=== PATIENT | female | born 1965 | race Caucasian/White ===

== ENCOUNTER 2023-05-30 15:16 | Outpatient (CLI) | payer OTHER, SELFPAY | END 2023-05-30 15:17 | disposition home or self-care (01) | PROVIDERS: PCP Family Medicine; Visit Provider Nurse Practitioner Family | DX: I25.10 Atherosclerotic heart disease of native coronary artery without angina pectoris (principal) | CPT/HCPCS: 36415; 85025 ==

== ENCOUNTER 2023-06-30 08:14 | Outpatient (CLI) | payer OTHER, SELFPAY ==
[2023-06-30 08:28] VITALS: BMI 25.0
--- NOTE | 2023-06-30 08:28 | NMCV_ITS ---
NM elaine perf SPECT r/s* [id number] Nicolette Payne Age: 58 Gender: F : 1965 Exam Date: 06/30/2023 08:28 Ordering Phys: Gabbi Neves Technologist: FLORENCIO Worrell Exam Location: [facility] Indications: ATHEROSCLEROTIC HEART DISEASE STRESS TEST Please see separate stress test report in [facility] for full findings IMAGE PROTOCOL Rest/Stress 1 Lexiscan Day Radiopharmaceutical Dose (mCi) Administration Site Administered by Rest: Tc-99m 10.8 IV FLORENCIO Worrell Sestamibi Stress:Tc-99m 32.7 IV FLORENCIO Laguna Sestamibi Rest: 30-Jun-2023 60 Discovery 630 Stress: 30-Jun-2023 30 Discovery 630 0.4mg Lexiscan. Images obtained in supine and prone position. SPECT RESULTS Technical Quality: Excellent Raw Data Analysis: Normal Image Corrections: No attenuation or motion correction applied Summed Stress Score: 7 Summed Rest Score: 11 Summed Difference Score: 0 PERFUSION FINDINGS There is a large sized fixed perfusion defect noted in apical, apical septal hope. This is consistent with large sized prior infarct noted in the LAD territory. Small sized area of fixed perfusion defect noted in the inferolateral wall. This is consistent with small sized prior infarct in the left circumflex artery territory FUNCTIONAL RESULTS (calculated via Gated SPECT) Stress Image LV EF (%): 77 Stress EDV (mL):78 TID: 0.98 Stress ESV (mL):18 FUNCTIONAL FINDINGS: There is normal left ventricular systolic function. IMPRESSIONS 1. Abnormal myocardial perfusion imaging with large sized area of prior infarct noted in the LAD territory. 2. Small sized prior infarct in the circumflex artery territory. 3. LV systolic function is normal. Leonel Styles MD (Electronically Signed) Final Date: 04 July 2023 10:43 S
--- NOTE | 2023-06-30 08:28 | ECG_ITS ---
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 Interpretive Statements NAME OF STUDY: LEXISCAN SESTAMIBI STRESS TEST INDICATION: [WORSENING ANGINA, ] Procedure: At the baseline, the blood pressure was 133/66 mmHg with a heart rate of 60 bpm. The electrocardiogram showed normal sinus rhythm, normal axis with normal ST and T's. The Lexiscan was infused over a period of 20 seconds. A total of 0.4 mg of Lexiscan was infused. The stress phase was continued for a total of 5 minutes. Heart rate was at the end of stress phase was 84 bpm and a blood pressure of 152/77 mmHg. The EKG at the peak infusion revealed normal sinus rhythm with no significant ST-T wave changes. Sestamibi was injected 20 seconds after the Lexiscan infusion. Blood pressure at the end of recovery phase was 148/75 mmHg with a heart rate of 86 bpm. Conclusion: 1. Normal EKG response to Lexiscan infusion 2. No Lexiscan induced chest pain or cardiac arrhythmia. 3. Normal blood pressure and heart rate response. 4. Sestamibi/sestamibi perfusion scan pending; see separate report. Electronically Signed On 07-12-2023 11:37:58 CDT by Leonel Styles M.D. [email or web address]
[2023-06-30 09:32] LABS: Anion Gap 15.4 (5-19); Blood Urea Nitrogen 16 mg/dL (8-23); Calcium 9.4 mg/dL (8.5-10.5); Carbon Dioxide 23 mmol/L (22-29); Chloride 108 mmol/L (98-107); Glucose 89 mg/dL (65-115); Osmolality Calculated 295 mOsm/kg (285-295); Potassium 4.4 mmol/L (3.5-5.1); Sodium 142 mmol/L (136-145)
[2023-06-30 10:14] LABS: Thyroid Stimulating Hormone 1.76 uIU/mL (0.27-4.20)
[2023-06-30] MEDS: regadenoson 0.4 Mg/5 ml Syringe IVP (11:04)
[2023-06-30 12:09] VITALS: BP 138/82; PULSE 87
== END 2023-06-30 08:15 | disposition home or self-care (01) ==
PROVIDERS: PCP Family Medicine; Visit Provider Nurse Practitioner Family
DX: I25.10 Atherosclerotic heart disease of native coronary artery without angina pectoris (principal)
CPT/HCPCS: 36415; 78452; 80048; 84443; 93017; 96374; A9500; J2785

== ENCOUNTER 2025-03-23 07:41 | Emergency (ER) | payer OTHER, SELFPAY ==
--- NOTE | 2025-03-23 07:44 | XRR_ITS ---
PROCEDURE INFORMATION: Exam: XR Chest Exam date and time: 03/23/2025 8:08 AM Age: 59 years old Clinical indication: Pain; Chest pressure; Prior surgery; Surgery date: 6+ months; Surgery type: Cardiac stent x 5; Additional info: Chest pain; Weakness; Fever; HX mi TECHNIQUE: Imaging protocol: Radiologic exam of the chest. Views: 1 view. COMPARISON: No relevant prior studies available. FINDINGS: Lungs: The lungs are clear. Pleural spaces: Unremarkable. No pleural effusion. No pneumothorax. Heart/Mediastinum: The heart is normal in size. There is a coronary artery stent present. Bones/joints: Unremarkable. XR/XR chest 1V portable [id number] IMPRESSION: No acute findings.
--- NOTE | 2025-03-23 07:46 | ECG_ITS ---
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 Measurements Intervals [place] Rate: 69 P: 54 GA: 171 QRS: 0 QRSD: 85 T: 55 QT: 374 QTc: 403 Interpretive Statements SINUS RHYTHM POSSIBLE ANTERIOR MYOCARDIAL INFARCTION , OF INDETERMINATE AGE [30 ms Q WAVE IN V3/V4, OR R < 0.2 mV IN V4] Compared to ECG 11/02/2018 06:16:29 No significant changes Electronically Signed On 03-25-2025 10:25:06 CDT by Leonel Styles M.D. [id number]
--- NOTE | 2025-03-23 07:48 | W.ED.CHESTPA ---
HPI - Chest Pain General: Chief Complaint: Chest Pain Stated Complaint: chest pain Time Seen by Provider: 03/23/25 07:43 Source: patient Mode of arrival: ambulatory Limitations: no limitations History of Present Illness: 59-year-old female states that over the last 10 days she has been having some generalized fatigue she states she is also been having some chest pain has been going on for last 3 to 4 days. She denies any worse or improving factors. She denies any shortness of breath. She did take a nitro this morning denies any pain currently. Associated symptoms: Deny abdominal pain, dyspnea, fever(s), nausea or vomiting Related Data Home Medications ?Medication ?Instructions ?Recorded ?Confirmed aspirin 81 mg tablet,delayed 81 mg PO DAILY 01/22/20 03/23/25 release (Adult Low Dose Aspirin) clopidogrel 75 mg tablet 75 mg PO DAILY 03/23/25 03/23/25 ezetimibe 10 mg tablet 10 mg PO DAILY 03/23/25 03/23/25 fenofibrate nanocrystallized 145 145 mg PO DAILY 03/23/25 03/23/25 mg tablet lisinopril 40 mg tablet 40 mg PO DAILY 03/23/25 03/23/25 metoprolol tartrate 25 mg tablet 37.5 mg PO DAILY 03/23/25 03/23/25 Previous Rx's ?Medication ?Instructions ?Recorded nitroglycerin 0.4 mg sublingual See Rx Instructions .Route 06/01/23 tablet .COMPLEX #25 tabs atorvastatin 80 mg tablet 80 mg PO DAILY #90 tabs 06/05/24 cephalexin 500 mg capsule 500 mg PO TID 7 days #21 caps 03/23/25 Allergies Allergy/AdvReac Type Severity Reaction Status Date / Time Sulfa (Sulfonamide Allergy ADR-Muscle Verified 02/25/25 14:43 Antibiotics) Pain amoxicillin (From Augmentin) AdvReac Unknown ADR-Vomitin Verified 02/25/25 14:43 g clavulanic acid (From AdvReac Unknown ADR-Vomitin Verified 02/25/25 14:43 Augmentin) g Review of Systems Const: Reports: fatigue; Denies: fever(s), chills, body aches or change in appetite ENMT: Denies: throat pain or dental pain Card: Reports: chest pain Resp: Denies: dyspnea GI: Denies: abdominal pain, nausea, vomiting or diarrhea : Denies: dysuria Musc: Denies: neck pain or back pain Skin/Breast: Denies: rash Neuro: Denies: headache(s) PFSH ED PFSH: Medical History Hyperlipidemia HTN (hypertension) Surgical History S/P PTCA (percutaneous transluminal coronary angioplasty) Family History Father Cancer Lung disease Dementia Other Suicide Denies family history of Diabetes CAD (coronary artery disease) Clotting disorder Chronic kidney disease (CKD) Anesthesia complication Bleeding disorder Stroke Social History Smoking and tobacco/nicotine status: former use of tobacco/nicotine Alcohol intake: never Substance/Drug Use: never Physical Exam Const: COMMON NORMALS: no acute distress, patient oriented x3 and healthy appearing HENMT: COMMON NORMALS: normocephalic and atraumatic HEAD & SCALP: normocephalic and atraumatic Eye: COMMON NORMALS: conjunctivae normal CONJUNCTIVA: Yes conjunctivae normal Neck/C-Spine: COMMON NORMALS: full ROM and supple Chest: COMMONS NORMALS: normal inspection of the chest Resp: COMMON NORMALS: normal respiratory effort, No retractions, No use of accessory muscles and clear to auscultation bilaterally AUSCULTATION: clear to auscultation bilaterally Cardio: COMMON NORMALS: regular rate, regular rhythm and No murmurs present (Cardio) RATE: regular rate RHYTHM: regular rhythm Extremity: COMMON NORMALS: normal to inspection and full ROM Neuro: COMMON NORMALS: patient oriented x3, moves all extremities and no focal motor deficits Psych: COMMON NORMALS: mental status grossly normal, Normal thought process present and cooperative THOUGHT PROCESS: Normal thought process present Skin: COMMON NORMALS: no rashes or lesions noted and no wounds GENERAL SKIN EXAM: no rashes or lesions noted Course Vital Signs: Vital signs: Vital Signs Temperature 98.1 F 03/23/25 07:50 Pulse Rate 64 03/23/25 08:00 Respiratory Rate 22 H 03/23/25 08:00 Blood Pressure 101/50 03/23/25 08:00 Pulse Oximetry 96 03/23/25 08:00 Oxygen Delivery Me thod Room Air 03/23/25 07:50 MDM - Chest Pain Medical Decision Making Patient presents here with weakness fatigue along with some chest pain chest pains atypical or initial repeat troponins here negative no signs of acute coronary syndrome she has no signs of dissection or pulmonary emboli she does have a nitrite positive urine likely UTI we will start her on antibiotics she is to follow-up with her PCP and return if worsening she understands agrees to plan Medical Records I reviewed the patient's medical records. Lab Data I reviewed the patient's lab results. 03/23/25 08:02 03/23/25 08:02 Radiology Impressions Chest X-Ray 03/23/25 07:44 IMPRESSION: No acute findings. Laboratory Results WBC 6.96 10^3/uL (3.29-11.43) 03/23/25 08:02 RBC 4.68 10^6/uL (3.85-5.65) 03/23/25 08:02 Hgb 13.60 g/dL (11.27-16.99) 03/23/25 08:02 Hct 43.2 % (36-47) 03/23/25 08:02 MCV 92.3 fl (85-98) 03/23/25 08:02 MCH 29.1 pg (27-33) 03/23/25 08:02 MCHC 31.5 g/dL (30-55) 03/23/25 08:02 RDW 12.3 % (12.1-15.1) 03/23/25 08:02 Plt Count 202 10^3/cmm (157-399) 03/23/25 08:02 MPV 9.2 fL (7.4-10.4) 03/23/25 08:02 Neut % (Auto) 64.0 % 03/23/25 08:02 Lymph % (Auto) 26.9 % 03/23/25 08:02 [place] % (Auto) 6.0 % 03/23/25 08:02 Eos % (Auto) 2.3 % 03/23/25 08:02 Baso % (Auto) 0.4 % 03/23/25 08:02 Neut # (Auto) 4.45 10^3/uL (1.8-7.7) 03/23/25 08:02 Lymph # (Auto) 1.9 10^3/uL (0.8-4.8) 03/23/25 08:02 [place] # (Auto) 0.4 10^3/uL (0.2-0.9) 03/23/25 08:02 Eos # (Auto) 0.2 10^3/uL (0.0-0.8) 03/23/25 08:02 Baso # (Auto) 0.0 10^3/uL (0.0-0.1) 03/23/25 08:02 Nucleated RBC % (auto) 0 % 03/23/25 08:02 Nucleated RBCs # 0.0 /100WBC 03/23/25 08:02 PT 12.30 SECONDS (12.1-14.9) 03/23/25 08:02 INR 0.86 (0.8-1.2) 03/23/25 08:02 Sodium 140 mmol/L (136-145) 03/23/25 08:02 Potassium 4.1 mmol/L (3.5-5.1) 03/23/25 08:02 Chloride 105 mmol/L (98-107) 03/23/25 08:02 Carbon Dioxide 23 mmol/L (22-29) 03/23/25 08:02 Anion Gap 16.1 (5-19) 03/23/25 08:02 BUN 18 mg/dL (8-23) 03/23/25 08:02 Creatinine 0.5 mg/dL (0.5-0.9) 03/23/25 08:02 GFR Calculation 125.4 mL/min (90-130) 03/23/25 08:02 Glucose 96 mg/dL (65-115) 03/23/25 08:02 Calculated Osmolality 292 mOsm/kg (285-295) 03/23/25 08:02 Calcium 9.3 mg/dL (8.5-10.5) 03/23/25 08:02 Total Bilirubin 0.3 mg/dL (0.15-1.2) 03/23/25 08:02 AST 25 U/L (0-32) 03/23/25 08:02 ALT 35 U/L (0-33) H 03/23/25 08:02 Alkaline Phosphatase 84 U/L (35-105) 03/23/25 08:02 Troponin T Baseline < 6 ng/L (0-10) 03/23/25 08:02 Troponin T 120 Minute 6.00 ng/L (0-10) 03/23/25 09:18 Delta Troponin T 0.64141 ABS# (0-10) 03/23/25 09:18 Total Protein 6.7 g/dL (6.6-8.7) 03/23/25 08:02 Albumin 4.4 g/dL (3.5-5.2) 03/23/25 08:02 Globulin 2.3 g/dL (1.3-4.6) 03/23/25 08:02 Lipase 88 U/L (13-60) H 03/23/25 08:02 TSH 2.55 uIU/mL (0.27-4.20) 03/23/25 08:02 Urine Color Yellow (Yellow) 03/23/25 08:41 Urine Appearance Clear (CLEAR) 03/23/25 08:41 Urine pH 5 (5-7) 03/23/25 08:41 Ur Specific [place] 1.019 (1.005-1.030) 03/23/25 08:41 Urine Protein Neg (Negative) 03/23/25 08:41 Urine Glucose (UA) Norm (Normal) 03/23/25 08:41 Urine Ketones Negative (Negative) 03/23/25 08:41 Urine Blood 2+ (Negative) H 03/23/25 08:41 Urine Nitrate Positive (Negative) A 03/23/25 08:41 Urine Bilirubin Neg (Negative) 03/23/25 08:41 Urine Urobilinogen 1 mg/dL (Negative) H 03/23/25 08:41 Ur Leukocyte Esterase Negative (Negative) 03/23/25 08:41 Urine RBC 3-5 /hpf (0-2) 03/23/25 08:41 Urine WBC 0-5 /hpf (0-5) 03/23/25 08:41 Ur Squamous Epith Cells 0-5 /hpf (0-5) 03/23/25 08:41 Amorphous Sediment Not Reportable 03/23/25 08:41 Urine Bacteria 4+ /hpf (NONE) H 03/23/25 08:41 All radiology interpretation(s) finalized by discharge EKG Data EKG 1: I personally reviewed and interpreted this EKG as follows: EKG interpretation date: 03/23/25 EKG interpretation time: 07:46 Interpretation: nsr hr [address] elevation qrs 85 qtc 394 Discharge Plan Discharge Patient Disposition: Home Clinical Impression: Chest pain, Acute cystitis, Weakness Condition: Stable Prescriptions: New cephalexin 500 mg capsule 500 mg PO TID 7 Days Qty: 21 0RF No Action aspirin [Adult Low Dose Aspirin] 81 mg tablet,delayed release (DR/EC) 81 mg PO DAILY nitroglycerin 0.4 mg tablet, sublingual See Rx Instructions .ROUTE .COMPLEX Qty: 25 0RF Dose Instruction: DISSOLVE ONE TABLET UNDER THE TONGUE EVERY 5 MINUTES NEEDED FOR CHEST PAIN FOR 30 DAYS. DO NOT EXCEED A TOTAL OF 3 DOSES IN 15 MINUTES Rx Instructions: DISSOLVE ONE TABLET UNDER THE TONGUE EVERY 5 MINUTES NEEDED FOR CHEST PAIN FOR 30 DAYS. DO NOT EXCEED A TOTAL OF 3 DOSES IN 15 MINUTES atorvastatin 80 mg tablet 80 mg PO DAILY Qty: 90 3RF clopidogrel 75 mg tablet 75 mg PO DAILY Rx Instructions: Take 1 tablet by mouth once daily lisinopril 40 mg tablet 40 mg PO DAILY Rx Instructions: Take 1 tablet by mouth once daily ezetimibe 10 mg tablet 10 mg PO DAILY Rx Instructions: Take 1 tablet by mouth once daily metoprolol tartrate 25 mg tablet 37.5 mg PO DAILY Rx Instructions: TAKE 1 & 1/2 (ONE & ONE-HALF) TABLETS BY MOUTH ONCE DAILY fenofibrate nanocrystallized 145 mg tablet 145 mg PO DAILY Rx Instructions: Take 1 tablet by mouth once daily Discharge Orders: Discharge ED (Routine); Ordered 03/23/25 Ordered By: Elizabeth Bernstein Referrals: Mario Morelos [Primary Care Provider, Family Practice] - 4-7 days Discharge Diet: Advance as tolerated Discharge Activity: Resume usual activity Patient Instructions: Chest Pain (ED), Urinary Tract Infection in Women (ED) Print Language: Indian Coding Level of Care Code ED Preschool Principal for Koki [place]
[2025-03-23 07:50] VITALS: BP 121/56; PULSE 65; RESP 18; TEMP 36.7; O2SAT 97; BMI 22.3
[2025-03-23 08:00] VITALS: BP 101/50; PULSE 64; RESP 22; O2SAT 96
[2025-03-23 08:06] LABS: Basophils % 0.4 %; Eosinophils # 0.2 10^3/uL (0.0-0.8); Eosinophils % 2.3 %; Hematocrit 43.2 % (36-47); Lymphocytes # 1.9 10^3/uL (0.8-4.8); Lymphocytes % 26.9 %; Mean Corpuscular HGB Conc 31.5 g/dL (30-55); Mean Corpuscular Hemoglobin 29.1 pg (27-33); Mean Corpuscular Volume 92.3 fl (85-98); Mean Platelet Volume 9.2 fL (7.4-10.4); Monocytes # 0.4 10^3/uL (0.2-0.9); Neutrophils # 4.45 10^3/uL (1.8-7.7); Nucleated Red Blood Cells % 0 %; Platelet Count 202 10^3/cmm (157-399); Red Blood Count 4.68 10^6/uL (3.85-5.65); Red Cell Distribution Width 12.3 % (12.1-15.1); White Blood Count 6.96 10^3/uL (3.29-11.43)
[2025-03-23 08:17] LABS: INR 0.86 (0.8-1.2)
[2025-03-23] MEDS: aspirin 81 mg Chew Tablet 324 MG PO (08:20)
[2025-03-23 08:28] LABS: Troponin(5th) Baseline < 6 ng/L (0-10)
[2025-03-23 08:30] VITALS: BP 104/59; PULSE 63; RESP 20; O2SAT 94
[2025-03-23 08:32] LABS: Alanine Aminotransferase 35 U/L (0-33); Albumin Level 4.4 g/dL (3.5-5.2); Alkaline Phosphatase 84 U/L (35-105); Aspartate Amino Transferase 25 U/L (0-32); Blood Urea Nitrogen 18 mg/dL (8-23); Calcium 9.3 mg/dL (8.5-10.5); Carbon Dioxide 23 mmol/L (22-29); Chloride 105 mmol/L (98-107); Creatinine Clr Calc Pharmacy 105.2144; Globulin 2.3 g/dL (1.3-4.6); Glomerular Filtration Rate 125.4 mL/min (90-130); Glucose 96 mg/dL (65-115); Lipase 88 U/L (13-60); Osmolality Calculated 292 mOsm/kg (285-295); Sodium 140 mmol/L (136-145); Thyroid Stimulating Hormone 2.55 uIU/mL (0.27-4.20); Total Bilirubin 0.3 mg/dL (0.15-1.2); Total Protein 6.7 g/dL (6.6-8.7)
[2025-03-23 08:35] LABS: Anion Gap 16.1 (5-19); Potassium 4.1 mmol/L (3.5-5.1)
[2025-03-23 09:00] VITALS: BP 102/59; PULSE 61; RESP 20; O2SAT 96
[2025-03-23 09:06] LABS: Urine Color Yellow (Yellow)
[2025-03-23 09:07] LABS: Blood Urine 2+ (Negative); Glucose Urine UA Norm (Normal); Ketones Urine Negative (Negative); Nitrate Urine Positive (Negative); Protein Urine Neg (Negative); Specific Gravity, Urine 1.019 (1.005-1.030); Urine Appearance Clear (CLEAR); pH Urine 5 (5-7)
[2025-03-23 09:08] LABS: Add Urine Culture? Yes; Add Urine Microscopic? YES; Bacteria Urine 4+ /hpf; Bilirubin Urine Neg (Negative); Leukocyte Esterase Urine Negative (Negative); Squamous Epithelial Cell Urine 0-5 /hpf (0-5); Urobilinogen Urine 1 mg/dL (Negative); WBC Urine 0-5 /hpf (0-5)
[2025-03-23 09:30] VITALS: BP 103/56; PULSE 62; RESP 20; O2SAT 95
[2025-03-23 09:47] LABS: Troponin 5 2HR < 6.0 ng/L (0-10); Troponin 5 2HR Delta 0 ABS# (0-10)
[2025-03-23] MEDS: cefTRIAXone 1,000 mg SDV 1000 MG IVP (09:55)
[2025-03-23 10:00] VITALS: BP 126/57; PULSE 63; RESP 25; O2SAT 96
== END 2025-03-23 10:00 | disposition home or self-care (01) ==
PROVIDERS: Emergency Provider Emergency Medicine; PCP Family Medicine
DX: R07.9 Chest pain, unspecified (principal); N30.00 Acute cystitis without hematuria; R53.1 Weakness; Z79.82 Long term (current) use of aspirin; Z87.891 Personal history of nicotine dependence; E78.5 Hyperlipidemia, unspecified; I10 Essential (primary) hypertension
CPT/HCPCS: 36415; 71045; 80053; 81001; 83690; 84443; 84484; 85025; 85610; 87077; 87086; 87186; 93005; 96374; 99285; J0696; J9999